=== PATIENT | female | born 1980 | race African-American/Black ===

== ENCOUNTER 2021-11-08 07:35 | Emergency (ER) | payer BC ==
[~2021-11-08] VITALS: Ht 180.3 cm; Wt 104.3 kg
[2021-11-08] MEDS ORDERED: GUAIFENESIN 600MG/DEXTROMETHORPHAN 30MG TABSR PO STA (07:58)
[2021-11-08] MEDS ORDERED: LACTATED RINGER'S 1,000 ML INJ ONE (08:00)
[2021-11-08] MEDS ORDERED: AMLODIPINE BESYLATE 10 MG TAB PO ONE (08:00)
[2021-11-08 08:19] LABS: BASOPHILS # (AUTO) 0.1 (0.0-0.1); BASOPHILS % 0.6 % (0.0-1.0); EOSINOPHILS # (AUTO) 0.2 (0.0-0.4); EOSINOPHILS % 1.8 % (0.0-6.0); HEMATOCRIT 30.4 % (34.2-44.1); HEMOGLOBIN 8.5 g/dL (12.0-16.0); LYMPHOCYTES # (AUTO) 2.4 (1.0-3.2); LYMPHOCYTES % 23.3 % (18.0-39.1); MEAN CORPUSCULAR HEMOGLOBIN 16.9 pg (28-32); MEAN CORPUSCULAR VOLUME 60.4 fL (81-99); MONOCYTES # (AUTO) 0.6 (0.2-0.8); MONOCYTES % 5.8 % (4.4-11.3); NEUTROPHILS # (AUTO) 7.1 (2.1-6.9); NEUTROPHILS % 67.9 % (38.7-80.0); PLATELET COUNT 396 x10e3/uL (140-360); RED BLOOD COUNT 5.03 x10e6/uL (3.6-5.1); RED CELL DISTRIBUTION WIDTH 23.1 % (11.7-14.4)
[2021-11-08 08:38] LABS: ALBUMIN 3.4 g/dL (3.5-5.0); ALBUMIN/GLOBULIN RATIO 1.1 (0.8-2.0); ANION GAP 11.6 mmol/L (8-16); CALCIUM 9.6 mg/dL (8.4-10.2); CREATININE, SERUM 1.27 mg/dL (0.57-1.11); POTASSIUM 3.6 mmol/L (3.5-5.1)
[2021-11-08] MEDS ORDERED: MUCINEX DM ER1 EACH PO (09:58)
[2021-11-08] MEDS ORDERED: AMLODIPINE BESY10 MG PO (09:58)
[2021-11-08 10:13] VITALS: BP 194/87
== END 2021-11-08 10:17 | disposition home or self-care (01) ==
LOC: ER 07:45
DX: R05.9 Cough, unspecified (principal); I10 Essential (primary) hypertension; Z20.822 Contact with and (suspected) exposure to COVID-19
CPT/HCPCS: 36415; 71045; 80053; 83880; 84484; 85025; 93005; 99284; J7121; U0002